=== PATIENT | female | born 1945 | race African-American/Black ===

== ENCOUNTER 2020-01-04 09:54 | Outpatient (CLI) | payer MEDICARE, OTHER ==
[~2020-01-04 09:54] MED LIST: ALLO300T PO; ASPI-496 PO; ATOR40TA PO; BRIN8DRO EACHEYE; LATA2.5D3 EACHEYE; LEVO88TA4 PO; POTA20TA89 PO; VALS1TAB19 PO
[2020-01-04] MEDS ORDERED: METO50TA82 PO (11:07)
[2020-01-04] MEDS ORDERED: KETO5DRO70 OP (11:07)
[2020-01-04] MEDS ORDERED: CELE200C PO (11:07)
[2020-01-04] MEDS ORDERED: METO25TA35 PO (11:07)
[2020-01-04] MEDS ORDERED: ALBU8.5H8 INH (11:07)
[2020-01-04] MEDS ORDERED: ATOR20TA37 PO (11:07)
[2020-01-04] MEDS ORDERED: DORZ10DR27 EACHEYE (11:07)
[2020-01-04] MEDS ORDERED: VITAMIN B12 PO (11:07)
[2020-01-04] MEDS ORDERED: FURO20TA3 PO (11:07)
[2020-01-04] MEDS ORDERED: CHOL10003 PO (11:07)
[2020-01-04] MEDS ORDERED: LOSA100T14 PO (11:07)
[2020-01-04] MEDS ORDERED: HYDR25TA6 PO (11:07)
[2020-01-04] MEDS ORDERED: OMEP-110 PO (11:07)
[2020-01-04 12:26] LABS: CHLORIDE 109 mmol/L (98-107)
[2020-01-04 12:34] LABS: ALANINE AMINOTRANSFERASE 22 U/L (12-78); ALBUMIN 3.4 g/dL (3.4-5.0); ALKALINE PHOSPHATASE 93 U/L (45-117); ANION GAP 5 mmol/L (5-15); BILIRUBIN,TOTAL 0.5 mg/dL (0.2-1.0); CALCIUM 9.7 mg/dL (8.5-10.1); CREATININE 0.97 mg/dL (0.55-1.02); TOTAL PROTEIN 7.3 g/dL (6.4-8.2)
== END 2020-01-04 23:59 | disposition home or self-care (01) ==
LOC: STAR 09:54
PROVIDERS: ATTEND Obstetrics & Gynecology Female Pelvic Medicine and Reconstructive Surgery
DX: Z01.818 Encounter for other preprocedural examination (principal); N95.0 Postmenopausal bleeding; R10.2 Pelvic and perineal pain; N81.10 Cystocele, unspecified; N39.3 Stress incontinence (female) (male); N84.1 Polyp of cervix uteri
CPT/HCPCS: 36415; 80053; 93005

== ENCOUNTER 2020-01-08 10:52 | Observation (INO) | payer MEDICARE, OTHER ==
[~2020-01-08] VITALS: Ht 172.7 cm; Wt 114.0 kg
[~2020-01-08 10:52] MED LIST changes: +ALBU8.5H8 INH; +ATOR20TA37 PO; +CELE200C PO; +CHOL10003 PO; +DORZ10DR27 EACHEYE; +FURO20TA3 PO; +HYDR25TA6 PO; +KETO5DRO70 OP; +LOSA100T14 PO; +METO25TA35 PO; +METO50TA82 PO; +OMEP-110 PO; +VITAMIN B12 PO
[2020-01-08] MEDS ORDERED: LACTATED RINGERS 1,000 ML IV SCH (12:00)
[2020-01-08] MEDS ORDERED: ACETAMINOPHEN 500 MG TABLET PO ONE (12:00)
[2020-01-08] MEDS ORDERED: CHLORHEXIDINE 15 ML UDC MM ONE (12:00)
[2020-01-08] MEDS ORDERED: FENTANYL PF 250 MCG/5ML ONE (15:08)
[2020-01-08] MEDS ORDERED: NALOXONE 0.4 MG/ML, 1ML ONE ×2 (15:15)
[2020-01-08] MEDS ORDERED: LABETALOL 5MG/ML, 20ML IV PRN (15:30)
[2020-01-08] MEDS ORDERED: HALOPERIDOL 5 MG/ML IV PRN (15:30)
[2020-01-08] MEDS ORDERED: HYDROmorphone 1 MG/ML, 1ML INJ IVPush PRN (15:30)
[2020-01-08] MEDS ORDERED: PROMETHAZINE 25 MG/ML, 1ML IVPush PRN (15:30)
[2020-01-08] MEDS ORDERED: OXYcodone 5 MG/5 ML ORAL.SOL UDC PO PRN (15:30)
[2020-01-08] MEDS ORDERED: DIPHENHYDRAMINE 50 MG/ML, 1ML IVPush PRN (15:30)
[2020-01-08] MEDS ORDERED: MEPERIDINE/PF 25MG/0.5ML IVPush PRN (15:30)
[2020-01-08] MEDS ORDERED: FENTANYL PF 100 MCG/2ML IV PRN (15:30)
[2020-01-08] MEDS ORDERED: hydrALAzine 20 MG/ML, 1ML IV PRN (15:30)
[2020-01-08] MEDS ORDERED: BUPIVACAINE/PF-EPI 0.25% 1:200K ONE (15:33)
[2020-01-08] MEDS ORDERED: GENTAMICIN 80 MG/2 ML ONE (15:33)
[2020-01-08] MEDS ORDERED: FUROSEMIDE 20 MG/2 ML ONE (15:34)
[2020-01-08] MEDS ORDERED: VANCOMYCIN 500 MG ONE (15:34)
[2020-01-08] MEDS ORDERED: FUROSEMIDE 100 MG/10 ML ONE (16:03)
[2020-01-08] MEDS ORDERED: METOPROLOL 1 MG/ML, 5ML ONE ×2 (16:32)
[2020-01-08] MEDS ORDERED: KETOROLAC 30 MG/1 ML ONE (17:25)
[2020-01-08] MEDS ORDERED: DEXAMETHASONE 4 MG/ML, 1ML ONE (17:25)
[2020-01-08] MEDS ORDERED: ONDANSETRON 2MG/ML, 2ML ONE ×2 (17:25→18:47)
[2020-01-08] MEDS ORDERED: CEFAZOLIN 1,000 MG ONE (17:25)
[2020-01-08] MEDS ORDERED: ROCURONIUM 10MG/ML,5ML ONE (17:25)
[2020-01-08] MEDS ORDERED: GLYCOPYRROLATE 0.2MG/1ML, 5ML ONE (17:25)
[2020-01-08] MEDS ORDERED: PROPOFOL 10 MG/ML, 20ML ONE (17:25)
[2020-01-08] MEDS ORDERED: NEOSTIGMINE 1 MG/ML, 10ML ONE (17:25)
[2020-01-08] MEDS ORDERED: SUCCINYLCHOLINE 20 MG/ML, 10ML ONE (17:25)
[2020-01-08] MEDS ORDERED: FENTANYL PF 100 MCG/2ML ONE (17:59)
[2020-01-08] MEDS ORDERED: OXYcodone 5 MG/5 ML ORAL.SOL UDC ONE (17:59)
[2020-01-08] MEDS ORDERED: hydrALAzine 20 MG/ML, 1ML ONE (18:12)
[2020-01-08] MEDS ORDERED: GLYCOPYRROLATE 0.4 MG/2 ML, 2ML ONE (18:13)
[2020-01-08] MEDS ORDERED: MEPERIDINE/PF 25MG/ML,1ML ONE (18:19)
[2020-01-08] MEDS ORDERED: HYDROmorphone 2 MG/ML, 1ML IV PRN (21:30)
[2020-01-08] MEDS ORDERED: HYDROcodone/APAP 5/325 TABLET PO PRN (21:30)
[2020-01-08] MEDS ORDERED: OXYcodone/APAP 5/325MG TABLET PO PRN (21:30)
[2020-01-08] MEDS ORDERED: IBUPROFEN 600 MG TABLET PO PRN (21:30)
[2020-01-08] MEDS ORDERED: HYDROmorphone 1 MG/ML, 1ML INJ IV PRN (21:30)
[2020-01-08] MEDS ORDERED: ONDANSETRON 2MG/ML, 2ML IV PRN (21:30)
[2020-01-08] MEDS ORDERED: KETOROLAC 30 MG/1 ML IV PRN (21:30)
[2020-01-09] MEDS ORDERED: CELECOXIB MC SCH (01:00)
[2020-01-09] MEDS ORDERED: KETOTIFEN MC SCH (01:00)
[2020-01-09] MEDS ORDERED: FUROSEMIDE MC SCH (01:00)
[2020-01-09] MEDS ORDERED: METOPROLOL MC SCH (01:00)
[2020-01-09] MEDS ORDERED: OMEPRAZOLE 20 MG CAPSULE.DR PO PRN (01:00)
[2020-01-09 03:51] VITALS: BP 144/73
[2020-01-09] MEDS ORDERED: LEVOTHYROXINE 88 MCG TABLET PO SCH (06:00)
[2020-01-09] MEDS ORDERED: METOPROLOL TARTRATE 50 MG TAB PO SCH (06:00)
[2020-01-09] MEDS ORDERED: METOPROLOL TARTRATE 25 MG TAB PO SCH (06:00)
[2020-01-09 07:00] VITALS: BP 156/83
[2020-01-09] MEDS ORDERED: ALLOPURINOL 300 MG TABLET PO SCH (09:00)
[2020-01-09] MEDS ORDERED: POTASSIUM CHLORIDE 20 MEQ TAB.ER.PRT PO SCH (09:00)
[2020-01-09] MEDS ORDERED: DORZOLAMIDE OPHTH 2%, 10ML EACHEYE SCH (09:00)
[2020-01-09] MEDS ORDERED: LOSARTAN 100 MG TAB PO SCH (09:00)
[2020-01-09] MEDS ORDERED: HYDROCHLOROTHIAZIDE 25 MG TABLET PO SCH (09:00)
[2020-01-09] MEDS ORDERED: CHOLECALCIFEROL 1,000 UNIT TABLET PO SCH (09:00)
[2020-01-09] MEDS ORDERED: CYANOCOBALAMIN 1,000 MCG TABLET PO SCH (09:00)
[2020-01-09] MEDS ORDERED: ALBUTEROL HFA 90 MCG/SPRAY INH SCH (09:00)
[2020-01-09 10:30] VITALS: BP 148/84
[2020-01-09] MEDS ORDERED: LATANOPROST OPHTH 0.005%, 2.5ML EACHEYE SCH (21:00)
[2020-01-09] MEDS ORDERED: ATORVASTATIN 20 MG TABLET PO SCH (21:00)
== END 2020-01-09 10:50 | disposition home or self-care (01) ==
LOC: OUT 10:52 → 4NE 19:20 → OUT 23:45
PROVIDERS: ADMIT Obstetrics & Gynecology Female Pelvic Medicine and Reconstructive Surgery; ATTEND Obstetrics & Gynecology Female Pelvic Medicine and Reconstructive Surgery
DX: Z03.818 Encounter for observation for suspected exposure to other biological agents ruled out (principal); N95.0 Postmenopausal bleeding; N84.1 Polyp of cervix uteri; N39.46 Mixed incontinence; N81.11 Cystocele, midline; N81.5 Vaginal enterocele; N81.6 Rectocele; N83.202 Unspecified ovarian cyst, left side; N83.201 Unspecified ovarian cyst, right side; K21.9 Gastro-esophageal reflux disease without esophagitis; E78.5 Hyperlipidemia, unspecified; E03.9 Hypothyroidism, unspecified; I10 Essential (primary) hypertension; N32.81 Overactive bladder; G43.909 Migraine, unspecified, not intractable, without status migrainosus; M47.816 Spondylosis without myelopathy or radiculopathy, lumbar region; Z79.899 Other long term (current) drug therapy; Z79.890 Hormone replacement therapy
CPT/HCPCS: 36415; 51990; 56810; 57265; 58552; 87635; 88307; G0378; J0330; J0360; J0690; J1100; J1580; J1885; J1940; J2175; J2405; J2704; J2710; J3010; J3370; J7120; J2310